=== PATIENT | female | born 1980 ===

== ENCOUNTER 2018-02-14 19:13 | Emergency (ER) | payer SELFPAY ==
[~2018-02-14] VITALS: Ht 157.5 cm; Wt 54.5 kg
[2018-02-14 19:29] VITALS: BP 108/67
== END 2018-02-14 21:56 | disposition left against medical advice (07) ==
LOC: EMS 19:16
DX: F41.9 Anxiety disorder, unspecified (principal); Z53.21 Procedure and treatment not carried out due to patient leaving prior to being seen by health care provider